=== PATIENT | male | born 1995 | race Caucasian/White ===

== ENCOUNTER 2019-07-28 15:17 | Emergency (ER) | payer SELFPAY ==
[2019-07-28 17:23] LABS: BLOOD UREA NITROGEN,BUN 10 mg/dL (7.0-18.0); CARBON DIOXIDE,CO2 30.6 mmol/L (21.0-32.0); CHLORIDE,CL 105 mmol/L (98-107); GLUCOSE RANDOM 91 mg/dL (74-106); POTASSIUM,K 3.9 mmol/L (3.5-5.1); SODIUM,NA 140 mmol/L (136-148)
--- NOTE | 2019-07-28 17:30 | EDM.PDOC ---
ED HPI GENERAL MEDICAL PROBLEM - General Chief Complaint: General Stated Complaint: anxiety Time Seen by Provider: 07/28/19 15:18 - History of Present Illness INITIAL COMMENTS - FREE TEXT/NARRATIVE: HPI 24-year-old male presents for evaluation of approximately 6 days of anxiety/ panic type episodes that lasts upwards of one hour. Patient reports that he has been feeling mildly more anxious about this timeframe with more prominent symptoms over last 3 days. Episodes seem to be most commonly occurring while driving, the patient will feel overwhelming fear, sensation he might , and chest tightness. This will resolve spontaneously. Patient reports that that he would drink 5 drinks per night on weeknights and more on weekends until 6 days ago when he stopped. Patient denies cutaneous symptoms, auditory visual hallucinations, headache, changes in vision or hearing, or further abnormalities. Denies drug use. Normal sleep. No change in baseline caffeine consumption (2 cups coffee per morning). ROS with no recent constitutional symptoms. Exam Gen: Pleasant, non-toxic appearing, resting comfortably HEENT: NC, AT, PEERL, EOMI. Resp: Clear to auscultation bilaterally. Unlabored respirations with a normal work of breathing. Card: Regular rate and rhythm. Extremities warm and well perfused. GI: Non-distended. : Deferred MSK: No visible deformities, strength and tone without visually appreciable deficit. Neuro: alert and oriented 3, no facial asymmetry, vision and hearing WNL. Heme/Lymph: Deferred Skin: Normal color with no visible lesions (other than noted above). Psych: mild psychomotor agitation noted. Labs: WBC 8.6, HB 14.0, sodium 140, potassium 3.9, AST 11, ALT 31, TSH 0.83. UDS negative. MDM Previous chart, nursing note, and vitals reviewed. A: 24-year-old male presents for evaluation of approximately 6 days of anxiety/ panic type episodes that lasts upwards of one hour. DDx & Evaluation: CBC, CMP, TSH WNL. Physical exam notable for mild psychomotor agitation. 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 Gabapentin taper prescribed, patient instructed to follow up PCP in 4 days for repeat evaluation. No features at the time the patients ED evaluation to suggest DTs or clinically significant alcohol withdraw. Impression: anxiety. - Related Data Allergies Allergy/AdvReac Type Severity Reaction Status Date / Time No Known Allergies Allergy Verified 07/28/19 15:29 Home Meds: Home Meds Gabapentin [Neurontin] 400 mg PO TID #20 cap 07/28/19 [Rx] Past Medical History - Infectious Disease History Infectious Disease History: Reports: None - Past Surgical History GI Surgical History: Reports: Appendectomy Social & Family History - Family History Family Medical History: Noncontributory - Caffeine Use Caffeine Use: Reports: Coffee - Recreational Drug Use Recreational Drug Use: No ED ROS GENERAL - Review of Systems Review Of Systems: See Below ED EXAM, GENERAL - Physical Exam Exam: See Below Course - Vital Signs Last Recorded V/S: Last Vital Signs Temp 36.2 C 07/28/19 15:29 Pulse 58 L 07/28/19 15:29 Resp 16 07/28/19 15:29 BP 133/67 07/28/19 15:29 Pulse Ox 99 07/28/19 15:29 - Orders/Labs/Meds Labs: Laboratory Tests 07/28/19 07/28/19 07/28/19 Range/Units 16:05 16:40 16:40 WBC 8.60 (4.0-11.0) K/uL RBC 4.70 (4.50-5.90) M/uL Hgb 14.0 (13.0-17.0) g/dL Hct 41.9 (38.0-50.0) % MCV 89.1 (80.0-98.0) fL MCH 29.8 (27.0-32.0) pg MCHC 33.4 (31.0-37.0) g/dL RDW Std Deviation 42.0 (28.0-62.0) fl RDW Coeff of Chintan 13 (11.0-15.0) % Plt Count 271 (150-400) K/uL MPV 9.40 (7.40-12.00) fL Neut % (Auto) 70.7 (48.0-80.0) % Lymph % (Auto) 21.6 (16.0-40.0) % Potter % (Auto) 5.5 (0.0-15.0) % Eos % (Auto) 1.6 (0.0-7.0) % Baso % (Auto) 0.6 (0.0-1.5) % Neut # (Auto) 6.1 H (1.4-5.7) K/uL Lymph # (Auto) 1.9 (0.6-2.4) K/uL Potter # (Auto) 0.5 (0.0-0.8) K/uL Eos # (Auto) 0.1 (0.0-0.7) K/uL Baso # (Auto) 0.1 (0.0-0.1) K/uL Nucleated RBC % 0.0 /100WBC Nucleated RBCs # 0 K/uL Sodium 140 (136-148) mmol/L Potassium 3.9 (3.5-5.1) mmol/L Chloride 105 (98-107) mmol/L Carbon Dioxide 30.6 (21.0-32.0) mmol/L BUN 10 (7.0-18.0) mg/dL Creatinine 0.9 (0.8-1.3) mg/dL Est Cr Clr Drug Dosing 133.63 mL/min Estimated GFR (MDRD) > 60.0 ml/min Glucose 91 (74-106) mg/dL Calcium 9.0 (8.5-10.1) mg/dL Total Bilirubin 0.6 (0.2-1.0) mg/dL AST 11 L (15-37) IU/L ALT 31 (14-63) IU/L Alkaline Phosphatase 59 (46-116) U/L Total Protein 7.3 (6.4-8.2) g/dL Albumin 4.3 (3.4-5.0) g/dL Globulin 3.0 (2.6-4.0) g/dL Albumin/Globulin Ratio 1.4 (0.9-1.6) TSH 3rd Generation 0.83 (0.36-3.74) uIU/mL Urine Opiates Screen NEGATIVE (NEGATIVE) Ur Oxycodone Screen NEGATIVE (NEGATIVE) Urine Methadone Screen NEGATIVE (NEGATIVE) Ur Barbiturates Screen NEGATIVE (NEGATIVE) Ur Phencyclidine Scrn NEGATIVE (NEGATIVE) Ur Amphetamine Screen NEGATIVE (NEGATIVE) U Methamphetamines Scrn NEGATIVE (NEGATIVE) U Benzodiazepines Scrn NEGATIVE (NEGATIVE) U Cocaine Metab Screen NEGATIVE (NEGATIVE) U Marijuana (THC) Screen NEGATIVE (NEGATIVE) Departure - Departure Time of Disposition: 17:28 Disposition: Home, Self-Care 01 Clinical Impression: Anxiety - Discharge Information Prescriptions: Gabapentin [Neurontin] 400 mg PO TID #20 cap Referrals: PCP,None [Primary Care Provider] - Additional Instructions: You were in seen in the [facility] Emergency Department for evaluation of anxiety, the time of your evaluation the cause of your symptoms is unclear, however they are tentatively believed to be due to (at least in part) alcohol withdraw. You have been prescribed gabapentin which should reduce your symptoms. Please read and follow all of the instructions below. Please follow up with your primary care physician and 3-4 days for repeat evaluation and further care as appropriate. When calling for follow-up care, please make the office aware that this follow-up is from your recent emergency room visit. If for any reason you are refused follow-up, please contact the [facility] Emergency Department at and asked to speak to the emergency department charge nurse. Your care today was limited to identifying and treating emergent medical problems only. Many people have subtle differences in their test results that require follow up with their outpatient physician(s) to correctly determine if this represents a normal variation or concerning abnormality with respect to your specific health. The care given to you today was limited to identifying and treating emergent medical problems - you need to request a copy of all of your medical records from today's visit and follow up with your outpatient physician(s) to review both today's visit and your overall health. If you have any new symptoms or if you are at all concerned about your health please return immediately to the emergency department. Prescriptions: If you are uninsured or have financial difficulties with filling your prescription(s), you may consider using a free pharmacy discount service such as [employer] ([employer]) or [facility] [facility] ([employer]) ([employer]). These services allow you to search for a medication on your phone (or computer) and obtain a coupon that usually has a significant discount from the list chance at a pharmacy. Your physician as well as [facility] does not have a financial relationship with either of these services. You may also wish to speak with your physician to determine if lower cost prescriptions are possible. Obtaining primary care: 1. [facility] provides pediatrics (children), family medicine (children, adults, and some obstetrical care), and internal medicine (adults). Further specialty care is also available. Same day appointments are available. They may be contacted at [phone] and are open Sunday through Sunday 8 AM to 5 PM. The [facility] clinics are located at [facility], [address] [place], [place] [address]. 2. [facility] offers family medicine, internal medicine, women health, and further specialty care. [facility] may be contacted at [phone]. [facility] is located at [address] [place], [address]. 3. If you have health insurance, please also contact your insurer for a list of accepting providers under your policy, you may contact these providers for further health care. Occupational health: Work related injuries may consider following up with [facility], . Occupational health services are located at [address] [place] [address] and are open Sunday through Sunday from 7: 30 am to 5:00 pm. Obstetrical and Gynecological Care: [facility], , Sunday through Sunday 8 AM to 5 PM. [address] [place] [address]. Eyecare: If you have an eye injury you should follow up with your complaints coordinator or with [facility], at [phone] or [phone] , they are located at [address] [place] [address]. Alcohol Withdrawal Alcohol withdrawal is a condition that happens when a person who often drinks large amounts of alcohol suddenly stops drinking alcohol. People with alcohol withdrawal often have a headache, a stomach ache, and trouble sleeping. But sometimes, the symptoms are much more serious and even life threatening. Mild to moderate withdrawal can be treated at home. You are being treated for alcohol withdrawal Call your primary care physician tomorrow to schedule a follow up appointment in 3-4 days. Do not drink any further alcohol. Take gabapentin as prescribed to help reduce withdrawal symptoms (400 mg three times a day for days 1 through 4, then 400 mg two times a day for days 5-8 ). Return immediately to the emergency room if you have hallucinations, fevers , sweating, a racing heart, confusion, increasing tremors, anxiety, chest pain, seizures or are otherwise concerned about your health. Please read the below information regarding alcohol withdrawal and regarding Gabapentin. Symptoms of Alcohol Withdrawal Mild symptoms include: trouble sleeping, trembling, feeling anxious, having an upset stomach and not wanting to eat, headache, sweating, feeling like your heart is beating fast, beating hard, or seems to skip a beat (these heartbeat changes are called "palpitations"). These symptoms often start within 6 hours after a person stops drinking. They might go away within 1 or 2 days. Some people also get more serious symptoms, including:, Seizures (these can make a person pass out, or move or behave strangely. With alcohol withdrawal, seizures usually happen within 12 to 48 hours after the person stops drinking) and hallucinations. Delirium tremens or DT, this is the most serious form of alcohol withdrawal. Symptoms include: hallucinations, feeling confused about where you are or who you are, feeling very upset and anxious, uncontrolled shaking, a fast heartbeat, high blood pressure, fever, and sweating. These symptoms start 2 to 4 days after a person stops drinking and can last up to 5 days. Gabapentin - How To Use Read the Medication Guide provided by your pharmacist before you start taking gabapentin and each time you get a refill. If you have any questions, ask your doctor or pharmacist. Swallow this medication whole. Do not crush or chew sustained-release tablets. Doing so can release all of the drug at once, increasing the risk of side effects. Also, do not split sustained-release tablets unless they have a score line and your doctor or pharmacist tells you to do so. Swallow the whole or split tablet without crushing or chewing. Antacids containing aluminum or magnesium may interfere with the absorption of this medication. Therefore, if you are also taking an antacid, it is best to take gabapentin at least 2 hours after taking the antacid. Gabapentin Side Effects Drowsiness, loss of coordination, and dizziness may occur. If any of these effects persist or worsen, tell your doctor or pharmacist promptly. Tell your doctor right away if you have any serious side effects, including : swelling of the hands/ankles/feet. A small number of people who take anticonvulsants for any condition (such as seizures, bipolar disorder, pain) may experience depression, suicidal thoughts/attempts, or other mental/mood problems. Tell your doctor right away if you or your family/caregiver notice any unusual/sudden changes in your mood, thoughts, or behavior including signs of depression, suicidal thoughts/attempts , thoughts about harming yourself. Get medical help right away if you have any serious side effects, including : unusual fever, swollen glands, yellowing skin/eyes, unusual tiredness, dark urine, change in the amount of urine, chest pain. A very serious allergic reaction to this drug is rare. However, get medical help right away if you notice any symptoms of a serious allergic reaction, including: rash, itching/swelling (especially of the face/tongue/throat), severe dizziness, trouble breathing. This is not a complete list of possible side effects. If you notice other effects not listed above, contact your doctor or pharmacist. Gabapentin Precautions Before taking gabapentin, tell your doctor or pharmacist if you are allergic to it; or to gabapentin enacarbil; or if you have any other allergies. This product may contain inactive ingredients, which can cause allergic reactions or other problems. Talk to your pharmacist for more details. Before using this medication, tell your doctor or pharmacist your medical history, especially of: kidney disease, mental/mood problems (such as depression , thoughts of suicide), use/abuse of drugs/alcohol. This drug may make you dizzy or drowsy. Do not drive, use machinery, or do any activity that requires alertness until you are sure you can perform such activities safely. Limit alcoholic beverages. Before having surgery, tell your doctor or dentist about all the products you use (including prescription drugs, nonprescription drugs, and herbal products). Older adults may be more sensitive to the side effects of this drug, especially swelling of the hands/ankles/feet, dizziness, or loss of coordination. Dizziness and loss of coordination can increase the risk of falling. Gabapentin Drug Interactions Tell your doctor or pharmacist if you are taking other products that cause drowsiness including alcohol, antihistamines (such as cetirizine, diphenhydramine), drugs for sleep or anxiety (such as alprazolam, diazepam, zolpidem), muscle relaxants, and narcotic pain relievers (such as codeine, morphine). Check the labels on all your medicines (such as allergy or [id number] products) because they may contain ingredients that cause drowsiness. Ask your pharmacist about using those products safely. Do not use this medication with other medications that contain gabapentin ( including gabapentin enacarbil). This medication may interfere with certain laboratory tests for urine protein. Make sure laboratory personnel and all your doctors know you use this drug. Gabapentin - How To Use Read the Medication Guide provided by your pharmacist before you start taking gabapentin and each time you get a refill. If you have any questions, ask your doctor or pharmacist. Swallow this medication whole. Do not crush or chew sustained-release tablets. Doing so can release all of the drug at once, increasing the risk of side effects. Also, do not split sustained-release tablets unless they have a score line and your doctor or pharmacist tells you to do so. Swallow the whole or split tablet without crushing or chewing. Antacids containing aluminum or magnesium may interfere with the absorption of this medication. Therefore, if you are also taking an antacid, it is best to take gabapentin at least 2 hours after taking the antacid. Gabapentin Side Effects Drowsiness, loss of coordination, and dizziness may occur. If any of these effects persist or worsen, tell your doctor or pharmacist promptly. Tell your doctor right away if you have any serious side effects, including : swelling of the hands/ankles/feet. A small number of people who take anticonvulsants for any condition (such as seizures, bipolar disorder, pain) may experience depression, suicidal thoughts/attempts, or other mental/mood problems. Tell your doctor right away if you or your family/caregiver notice any unusual/sudden changes in your mood, thoughts, or behavior including signs of depression, suicidal thoughts/attempts , thoughts about harming yourself. Get medical help right away if you have any serious side effects, including : unusual fever, swollen glands, yellowing skin/eyes, unusual tiredness, dark urine, change in the amount of urine, chest pain. A very serious allergic reaction to this drug is rare. However, get medical help right away if you notice any symptoms of a serious allergic reaction, including: rash, itching/swelling (especially of the face/tongue/throat), severe dizziness, trouble breathing. This is not a complete list of possible side effects. If you notice other effects not listed above, contact your doctor or pharmacist. Gabapentin Precautions Before taking gabapentin, tell your doctor or pharmacist if you are allergic to it; or to gabapentin enacarbil; or if you have any other allergies. This product may contain inactive ingredients, which can cause allergic reactions or other problems. Talk to your pharmacist for more details. Before using this medication, tell your doctor or pharmacist your medical history, especially of: kidney disease, mental/mood problems (such as depression , thoughts of suicide), use/abuse of drugs/alcohol. This drug may make you dizzy or drowsy. Do not drive, use machinery, or do any activity that requires alertness until you are sure you can perform such activities safely. Limit alcoholic beverages. Before having surgery, tell your doctor or dentist about all the products you use (including prescription drugs, nonprescription drugs, and herbal products). Older adults may be more sensitive to the side effects of this drug, especially swelling of the hands/ankles/feet, dizziness, or loss of coordination. Dizziness and loss of coordination can increase the risk of falling. Gabapentin Drug Interactions Tell your doctor or pharmacist if you are taking other products that cause drowsiness including alcohol, antihistamines (such as cetirizine, diphenhydramine), drugs for sleep or anxiety (such as alprazolam, diazepam, zolpidem), muscle relaxants, and narcotic pain relievers (such as codeine, morphine). Check the labels on all your medicines (such as allergy or [id number] products) because they may contain ingredients that cause drowsiness. Ask your pharmacist about using those products safely. Do not use this medication with other medications that contain gabapentin ( including gabapentin enacarbil). This medication may interfere with certain laboratory tests for urine protein. Make sure laboratory personnel and all your doctors know you use this drug. Sepsis Event Note - Evaluation Sepsis Screening Result: No Definite Risk - Focused Exam Vital Signs: Vital Signs Temp Pulse Resp BP Pulse Ox 07/28/19 15:29 36.2 C 58 L 16 133/67 99 Date Exam was Performed: 07/28/19 Time Exam was Performed: 17:27
== END 2019-07-28 17:40 | disposition home or self-care (01) ==
LOC: MW.ED 15:17
DX: F41.9 Anxiety disorder, unspecified (principal)
CPT/HCPCS: 36415; 80053; 80305-QW; 84443; 85025; 99283

== ENCOUNTER 2022-02-11 03:55 | Emergency (ER) | payer SELFPAY ==
[2022-02-11] MEDS ORDERED: Tetracaine HCl/PF 0.5% 4 ML Bottle EYELF ONE (05:17)
[2022-02-11] MEDS ORDERED: Diphtheria,Pertussis(Acell),Tetanus Vaccine 0.5 ML Syringe IM ONE (05:17)
== END 2022-02-11 06:00 | disposition left against medical advice (07) ==
LOC: MW.ED 03:55
DX: T15.91XA Foreign body on external eye, part unspecified, right eye, initial encounter (principal)
CPT/HCPCS: 99282; 99283